=== PATIENT | male | born 1975 | race Caucasian/White ===

== ENCOUNTER 2021-11-09 20:34 | Emergency (ER) | payer OTHER ==
[2021-11-09 23:39] LABS: RED BLOOD COUNT 5.34 M/UL (4.20-5.50); WHITE BLOOD COUNT 13.6 K/UL (4.5-11.0)
[2021-11-10 00:10] LABS: BUN/CREATININE RATIO 26 (0-10)
== END 2021-11-10 01:44 | disposition home or self-care (01) ==
LOC: ER1 20:34
PROVIDERS: Physician Assistant Medical
DX: E11.649 Type 2 diabetes mellitus with hypoglycemia without coma (principal); M25.511 Pain in right shoulder; J44.9 Chronic obstructive pulmonary disease, unspecified; F17.210 Nicotine dependence, cigarettes, uncomplicated
CPT/HCPCS: 36600; 71045; 73030; 80053; 82009; 82550; 82553; 82803; 82962; 83690; 84484; 85025; 93005; 96374; 99284; J2405